=== PATIENT | female | born 1975 | race Caucasian/White ===

== ENCOUNTER 2021-11-03 18:04 | Emergency (ER) | payer BC ==
[2021-11-03] MEDS ORDERED: Sodium Chloride 0.9% 10 ML Syringe FLUSH PRN (19:05)
[2021-11-03] MEDS ORDERED: Sodium Chloride 0.9% 1,000 ML IV STA (19:05)
[2021-11-03] MEDS ORDERED: cefTRIAXone 2 GM in Sodium Chloride 0.9% 100 ML IV ONE (19:06)
[2021-11-03 20:15] LABS: ESTIMATED GFR 91 mL/min (>60)
== END 2021-11-03 21:23 | disposition home or self-care (01) ==
LOC: JD.ED 18:04
DX: N39.0 Urinary tract infection, site not specified (principal); Z88.0 Allergy status to penicillin
CPT/HCPCS: 36415; 74176; 80053; 85025; 86140; 96361; 96365; 99284; J0696; J3490; J7030; 99283